=== PATIENT | female | born 2000 | race Caucasian/White ===

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

== ENCOUNTER → 2021-07-04 | Outpatient (CLI) | payer BC ==
[~2021-07-04] MED LIST changes: +BACI500O21 TOP; +CIPR-249 PO; +COLA100C5 PO; -CONRAY-43 43% 50ML VIAL (Q9960) As Ordered; +DOXY1CAP62 PO; +HYDR25OI TOP; +LEXA1TAB2 PO; -LIDOCAINE 1% MDV 20ML VIAL As Ordered; +ONDA4TAB6 PO; +PRED20TA PO; +PROV108A INH; +ZITHTAB PO; -methylPREDNISolone SUSP 40 MG/ML (DEPO-medrol) VIAL (J1030) As Ordered
[2021-07-04 12:00] LABS: RSV AMPLIFICATION NEGATIVE (NEGATIVE)
== END ==
LOC: M LAB 10:03
PROVIDERS: ATTEND Physician Assistant Medical
DX: J34.89 Other specified disorders of nose and nasal sinuses (principal); Z20.828 Contact with and (suspected) exposure to other viral communicable diseases

== ENCOUNTER → 2022-03-21 | Outpatient (CLI) | payer BC ==
[~2022-03-21] MED LIST changes: +AMOX500C PO; +DOXY-443 PO; -DOXY1CAP62 PO
[2022-03-21 21:42] LABS: RSV AMPLIFICATION NEGATIVE (NEGATIVE)
== END ==
LOC: M LAB 20:30
PROVIDERS: ATTEND Emergency Medicine
DX: J31.0 Chronic rhinitis (principal)

== ENCOUNTER → 2022-10-29 | Outpatient (CLI) | payer BC ==
[~2022-10-29] MED LIST changes: +ALBU6.7H6 INH; -PROV108A INH
== END ==
LOC: M WHC 10:00
PROVIDERS: ATTEND Emergency Medicine
DX: N83.202 Unspecified ovarian cyst, left side (principal); R10.32 Left lower quadrant pain; R10.2 Pelvic and perineal pain

== ENCOUNTER → 2023-07-07 | Outpatient (CLI) | payer OTHER ==
[~2023-07-07] MED LIST changes: +ATOM40CA16 PO; +IBUP-1022 PO; +KETO10TAB PO; +PROT1TAB2 PO; +STRA80CA PO
[2023-07-07 14:16] LABS: HEMATOCRIT 35.9 % (36.0-47.0); HEMOGLOBIN 11.7 g/dl (12.0-15.5); MEAN CORPUSCULAR HEMOGLOBIN 27.7 pg (27.0-33.0); MEAN CORPUSCULAR HGB CONC 32.6 g/dl (32.0-36.5); MEAN CORPUSCULAR VOLUME 84.9 fl (80.0-96.0); PLATELET COUNT, AUTOMATED 363 10^3/uL (150-450); RED BLOOD COUNT 4.23 10^6/uL (4.00-5.40); WHITE BLOOD COUNT 8.4 10^3/uL (4.0-10.0)
[2023-07-07 14:40] LABS: HEMOGLOBIN A1c 4.8 % (4.0-6.0)
[2023-07-07 14:48] LABS: ALKALINE PHOSPHATASE 58 U/L (46-116); ALT/SGPT 10 U/L (7.0-40); AST/SGOT < 8 U/L (<34); BILIRUBIN,TOTAL 0.3 MG/DL (0.3-1.2); BLOOD UREA NITROGEN 9 MG/DL (9-23); CALCIUM LEVEL 9.4 MG/DL (8.5-10.1); CARBON DIOXIDE LEVEL 27 MMOL/L (20-31); CHLORIDE LEVEL 106 MMOL/L (98-107); CREATININE FOR GFR 0.65 MG/DL (0.55-1.30); GLOMERULAR FILTRATION RATE > 60.0 (>60); GLUCOSE, FASTING 85 MG/DL (60-100); PHOSPHORUS LEVEL 3.5 MG/DL (2.5-4.9); POTASSIUM SERUM 4.6 MMOL/L (3.5-5.1); SODIUM LEVEL 139 MMOL/L (136-145); THYROID STIMULATING HORMONE 1.788 uIU/ML (0.55-4.78); TOTAL PROTEIN 7.3 G/DL (5.7-8.2)
[2023-07-07 14:49] LABS: FREE T4 0.95 NG/DL (0.89-1.76)
== END ==
LOC: M LAB 13:13
PROVIDERS: ATTEND Family Medicine
DX: N20.0 Calculus of kidney (principal); F43.21 Adjustment disorder with depressed mood

== ENCOUNTER → 2023-10-25 | Outpatient (CLI) | payer OTHER | LOC: M RAD 09:08 | PROVIDERS: ATTEND Emergency Medicine | DX: R10.2 Pelvic and perineal pain (principal); N83.202 Unspecified ovarian cyst, left side ==

== ENCOUNTER → 2024-02-01 | Outpatient (REF) | payer OTHER | LOC: M LAB REF 16:21 | PROVIDERS: ATTEND Internal Medicine | DX: Z11.4 Encounter for screening for human immunodeficiency virus [HIV] (principal) ==